=== PATIENT | female | born 1980 | race African-American/Black ===

== ENCOUNTER 2018-10-02 19:25 | Emergency (ER) | payer MEDICAID ==
[~2018-10-02] VITALS: Ht 175.3 cm; Wt 70.9 kg
[2018-10-03] MEDS ORDERED: TRAMADOL 50MG TABLET PO ONE
[2018-10-03] MEDS ORDERED: KETOROLAC 60MG/2ML VIAL IM ONE
[2018-10-03] MEDS: FAMOTIDINE 20MG/2ML VIAL IV NR ×2 (01:45→03:53)
[2018-10-03] MEDS ORDERED: MAGNESIUM/ALUMINUM HYDROXIDE/SIMETHICONE 30ML UDC PO NR (01:45)
[2018-10-03] MEDS ORDERED: VISCOUS LIDOCAINE 2% 15 ML UDC MM NR (01:45)
[2018-10-03] MEDS ORDERED: CLONIDINE 0.3MG TABLET PO NR (03:30)
[2018-10-03 04:43] LABS: BASOPHILS % 3.8 % (0.0-2.0); EOSINOPHILS % 4.3 % (0.0-5.0); HEMATOCRIT. 36.5 % (36.0-48.0); HEMOGLOBIN. 12.3 g/dL (12.0-16.0); LYMPHOCYTES % 47.1 % (20.0-50.0); MEAN CORPUSCULAR HEMOGLOBIN 30.7 pg (28.0-32.0); MEAN CORPUSCULAR VOLUME 90.8 fL (81.0-99.0); MEAN PLATELET VOLUME 8.5 fl (7.4-10.4); MONOCYTES % 9.2 % (2.0-8.0); NEUTROPHILS % 35.6 % (40.0-76.0); PLATELET 315 x1000/uL (130-400); RED BLOOD CELL COUNT 4.02 mill/uL (4.2-5.4); RED CELL DISTRIBUTION WIDTH 17.1 % (11.6-14.6)
[2018-10-03 06:17] VITALS: BP 140/108
== END 2018-10-03 07:23 | disposition home or self-care (01) ==
LOC: ER 19:25
DX: R51 Headache (principal); R10.9 Unspecified abdominal pain; R07.9 Chest pain, unspecified; I10 Essential (primary) hypertension; R11.2 Nausea with vomiting, unspecified; F12.10 Cannabis abuse, uncomplicated; F17.200 Nicotine dependence, unspecified, uncomplicated
CPT/HCPCS: 36415; 71046; 76700; 80076; 81025; 84484; 85025; 93005; 96372; 96374; 99284; J1885; J3490